=== PATIENT | male | born 1965 | race Caucasian/White ===

== ENCOUNTER 2016-09-29 10:53 | Emergency (ER) | payer SELFPAY ==
[~2016-09-29] VITALS: Ht 172.7 cm; Wt 81.0 kg
[2016-09-29 10:58] VITALS: Ht 172.7 cm; Wt 81.0 kg
[2016-09-29] MEDS ORDERED: FLUORESCEIN STRIP LEFT EYE ONE (12:00)
[2016-09-29] MEDS ORDERED: TETRACAINE 0.5% 4 ML OPH LEFT EYE ONE (12:00)
[2016-09-29] MEDS ORDERED: IBUP-1542 PO (12:05)
--- NOTE | 2016-09-29 12:49 | ERD ---
ER Documentation Chief Complaint Date/Time DATE: 09/29/16 TIME: 12:32 Chief Complaint Pt present with LAC to L eye and posible eye abrasion X 30 minutes. HPI 51-year-old male complaining of injury to his left eye 30 minutes prior. Patient stated that he was walking on the sidewalk also the hospital. He hurt the ambulance [place], he started running to clear the driveway for the ambulance. He ran into a tree branch on the sidewalk at a high level. He felt a branch poked inside his left eye. He had blurry vision and pressure sensation in the left eye immediately after the injury. Described the pain as 6 out of 10 at a time. At this time, he feels his vision is clear, and the pressure is much improved, 2 out of 10 now. Denies loss of consciousness. Denies nausea or vomiting. Denies pain or foreign body sensation in the left eye. ROS All systems reviewed and are negative except as per history of present illness. Medications Home Meds Active Scripts Ibuprofen* (Motrin*) 600 Mg Tab, 600 MG PO Q6H Y for PAIN AND OR ELEVATED TEMP, #30 TAB Prov:CATALINA BLAIR [place]. GYRO MECH[employer]IC 09/29/16 PMhx/Soc Medical and Surgical Hx: pt denies Medical Hx, pt denies Surgical Hx Hx Alcohol Use: Yes Hx Substance Use: No Hx Tobacco Use: No Smoking Status: Never smoker Physical Exam Vitals Vital Signs Date Time Temp Pulse Resp B/P Pulse Ox O2 Delivery O2 Flow Rate FiO2 09/29/16 10:58 98.8 84 14 137/80 95 Physical Exam General: Patient is well-developed. Awake, alert, and conversant, in no apparent distress Skin: Warm and dry Head: Normocephalic, without palpable deformities. Abrasion on the left forehead and left upper eyebrow. Eyes: Pupils equal, round, and reactive to light. Extraocular movements intact. No periorbital ecchymosis or step-off. No scleral or conjunctival injection, no subconjunctival hemorrhage, no hyphema Neck: No midline point tenderness, step-off, or deformity to firm palpation of posterior cervical spine. Trachea midline. Carotids equal. No masses. No JVD. Full range of motion of the neck without limitation or pain Chest: No surface trauma. Nontender without crepitus or deformity. No palpable subcutaneous air. Lungs have good tidal volume, lungs clear to auscultate bilaterally Heart: Regular rate and rhythm. No murmur, rub, or gallop Extremities: No surface trauma. Full range of motion without limitation or pain. Good strength in all extremities. Sensation to light touch intact. All peripheral pulses are intact and equal Neuro: Alert and oriented 4, GCS 15, cranial nerves II through XII intact. Motor and sensory exam is nonfocal. Reflexes are symmetric Results 24 hrs Current Medications Medications (Trade) Dose Ordered Sig/Delisa Route PRN Reason Start Time Stop Time Status Last Admin Dose Admin Fluorescein Sodium (Fmabb-V-[id number]) 1 strip ONCE ONCE LEFT EYE 09/29/16 12:00 09/29/16 12:01 DC Tetracaine HCl (Tetracaine 0.5% Steri-Unit Petra) 1 drop ONCE ONCE LEFT EYE 09/29/16 12:00 09/29/16 12:01 DC Procedures/MDM Tetracaine ophthalmic solution was instilled into patient's left eye. Fluoresceins dye was then applied. Patient was examined under Wood's lamp. No dye uptake was noted. Visual acuity: The left 20/20, right 20/20, bilateral 20/ 20. Left eye pressure via Jose-Pen: 20. Well-appearing 51-year-old male present ED after collision with a tree branch. His eye exams are completely normal. I doubt corneal abrasion, subconjunctival hemorrhage, hyphema, globe rupture, or other ophthalmologic emergency. Patient is abrasion was cleansed and bandaged. Patient appears well, stable for discharge and outpatient management. Medical decision making shared with patient and family. Education provided to patient and family. Patient and family expressed understanding of the plan. Medications on discharge: None. Follow-up: Primary care provider or ophthalmology if his eye symptoms are worse. Departure Diagnosis: Primary Impression: Abrasion Condition: Stable Patient Instructions: Abrasion Referrals: COMMUNITY CLINICS YOU HAVE RECEIVED A MEDICAL SCREENING EXAM AND THE RESULTS INDICATE THAT YOU DO NOT HAVE A CONDITION THAT REQUIRES URGENT TREATMENT IN THE EMERGENCY DEPARTMENT. FURTHER EVALUATION AND TREATMENT OF YOUR CONDITION CAN WAIT UNTIL YOU ARE SEEN IN YOUR DOCTORS OFFICE WITHIN THE NEXT 1-2 DAYS. IT IS YOUR RESPONSIBILITY TO MAKE AN APPOINTMENT FOR FOLOW-UP CARE. IF YOU HAVE A PRIMARY DOCTOR --you should call your primary doctor and schedule an appointment IF YOU DO NOT HAVE A PRIMARY DOCTOR YOU CAN CALL OUR PHYSICIAN REFERRAL HOTLINE AT IF YOU CAN NOT AFFORD TO SEE A PHYSICIAN YOU CAN CHOSE FROM THE FOLLOWING [facility] [address] [facility] [address] [facility] [facility] [address] [facility] [address] [facility]. [facility] [address] [facility]. [facility] [address] [facility]. [facility] Hours: Mon - Fri 9:00 AM - 5:00 PM Additional Instructions: Call your primary care doctor TOMORROW for an appointment during the next 2-3 days.See the doctor sooner or return here if your condition worsens before your appointment time. See an apartment maintenance technician if your eye feels worse. CATALINA BLAIR NP Sep 29, 2016 12:45
== END 2016-09-29 12:48 | disposition home or self-care (01) ==
LOC: FTE 10:53
DX: S00.81XA Abrasion of other part of head, initial encounter (principal); W22.8XXA Striking against or struck by other objects, initial encounter; Y92.480 Sidewalk as the place of occurrence of the external cause
CPT/HCPCS: 99283